=== PATIENT | female | born 1985 | race Caucasian/White ===

== ENCOUNTER → 2018-02-24 | Outpatient (CLI) | payer OTHER | LOC: FIMAGING 08:36 | PROVIDERS: ATTEND Advanced Practice Midwife | DX: Z34.82 Encounter for supervision of other normal pregnancy, second trimester (principal); Z3A.19 19 weeks gestation of pregnancy ==

== ENCOUNTER → 2018-03-26 | Outpatient (CLI) | payer OTHER | LOC: FIMAGING 09:17 | PROVIDERS: ATTEND Advanced Practice Midwife | DX: O09.892 Supervision of other high risk pregnancies, second trimester (principal); Z86.79 Personal history of other diseases of the circulatory system; Z3A.22 22 weeks gestation of pregnancy ==

== ENCOUNTER → 2018-05-14 | Outpatient (CLI) | payer OTHER | LOC: FIMAGING 11:44 | PROVIDERS: ATTEND Advanced Practice Midwife | DX: O09.293 Supervision of pregnancy with other poor reproductive or obstetric history, third trimester (principal); Z3A.30 30 weeks gestation of pregnancy ==

== ENCOUNTER 2018-07-25 05:34 | Inpatient (IN) | payer OTHER ==
[2018-07-25] MEDS ORDERED: MISOPROSTOL 200 MCG TAB PR PRN (05:44)
[2018-07-25] MEDS ORDERED: OXYTOCIN/RINGERS LACTATE 1,000 ML IV PRN (05:44)
[2018-07-25] MEDS ORDERED: IBUPROFEN 600 MG TAB PO PRN (05:44)
[2018-07-25] MEDS ORDERED: LIDOCAINE 1% 300 MG/30 ML SDV SC PRN (05:44)
[2018-07-25] MEDS ORDERED: EPSOM SALT 454 GM TP PRN (05:44)
[2018-07-25] MEDS ORDERED: OLIVE OIL 118 ML BTL MISC PRN (05:44)
[2018-07-25] MEDS ORDERED: LR 1,000 ML IV PRN (05:44)
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
[2018-07-25] MEDS ORDERED: PENICILLIN G POTASSIUM 5,000,000 UNIT in D5W 150 ML IV ONE (06:00)
[2018-07-25] MEDS ORDERED: TERBUTALINE SULFATE 1 MG/ML VIAL ONE (07:08)
[2018-07-25] MEDS ORDERED: OLIVE OIL 118 ML BTL MISC ONE (07:08)
[2018-07-25] MEDS ORDERED: AMMONIA AROMATIC 1 EACH AMP IH ONE (07:08)
[2018-07-25] MEDS ORDERED: LIDOCAINE 1% 300 MG/30 ML SDV ONE (07:08)
[2018-07-25] MEDS ORDERED: MISOPROSTOL 200 MCG TAB ONE (07:09)
[2018-07-25] MEDS ORDERED: OXYTOCIN 10 UNIT/ML VIAL ONE (07:09)
[2018-07-25 07:51] LABS: PLATELET COUNT 144 10^3/uL (150-400)
[2018-07-25] MEDS ORDERED: ACETAMINOPHEN 325 MG TAB PO PRN (09:33)
[2018-07-25] MEDS ORDERED: HYDROCORTISONE 0.5% CREAM TP PRN (09:33)
[2018-07-25] MEDS ORDERED: SIMETHICONE 80 MG TAB CHEW PO PRN (09:33)
--- NOTE | 2018-07-25 09:38 | OBDEL ---
Info Type: Vaginal Presentation at Delivery: Vertex L&D Analgesia/Anesthesia Type: None GBS+: Yes Intrapartum Medications: Discontinued Medications Generic Name Dose Route Start Last Admin Trade Name Bart PRN Reason Stop Dose Admin Penicillin G Potassium 5,000, 160 mls @ 160 mls/hr 07/25/18 06:00 07/25/18 06 :09 000 unit/ Dextrose IV 07/25/18 06:59 160 mls ONCE ONE Administration Protocol Indications for Delivery: Spontaneous Labor, SROM Vaginal Delivery - Delivery Provider Delivery Physician/CNM: Magi Siddiqui - Labor and Delivery Onset of Contractions Date: 07/25/18 Onset of Contractions Time: 02:00 Onset of Contractions Type: Spontaneous Rupture of Membranes Date: 07/25/18 Rupture of Membranes Time: 05:30 Rupture of Membranes Type: Spontaneous Amniotic Fluid Color: Clear Dilation Complete Date: 07/25/18 Dilation Complete Time: 07:30 Placenta Delivery Date: 07/25/18 Vaginal Sponge Count Correct: Yes Vaginal Needle Count Correct: Yes Vaginal Sweep Performed: Yes EBL: 250 Delivery Events: Nuchal Cord Data HERMILO: 07/18/18 Gestational Age: 41 week(s) and 0 day(s) Gatica Delivery Date: 07/25/18 Delivery Time: 08:37 Sex of Infant: Female Score (1 Min): 8 Score (5 Min): 8 ICD10 Worksheet Patient Problems: Problems Problem Status Onset Positive GBS test Acute (spontaneous vaginal delivery) Acute - ICD10 Problem Qualifiers (1) (spontaneous vaginal delivery) (2) Positive GBS test
[2018-07-25] MEDS: PENICILLIN G POTASSIUM 2,500,000 UNIT in D5W 150 ML IV SCH (14:03)
[2018-07-25] MEDS: IBUPROFEN 600 MG TAB PO PRN (17:47)
[2018-07-25] MEDS: DOCUSATE SODIUM 100 MG CAP PO PRN (17:48)
[2018-07-26] MEDS: IBUPROFEN 600 MG TAB PO PRN (00:22)
[2018-07-26] MEDS: DOCUSATE SODIUM 100 MG CAP PO PRN (09:49)
--- NOTE | 2018-07-26 12:25 | OBPP ---
Progress Note Assessment/Plan: Assessment: 1. breast feeding mom 2. 1 pp day, Plan: 1. support 2. d/c home tomorrow 07/26/18 12:22 Subjective/ Course: 07/26/18 12:24 BF well, voiding without difficulty, plan d/c home tomorrow Objective: 07/25/18 06:05 07/25/18 06:05 Patient ABO/Rh O POSITIVE 07/25/18 09:55 Uric Acid 5.8 mg/dL (2.5-6.8) 07/25/18 06:05 Total Bilirubin 0.3 mg/dL (0.1-1.4) 07/25/18 06:05 Conjugated Bilirubin 0.3 mg/dL (0.0-0.5) 07/25/18 06:05 Unconjugated Bilirubin 0.0 mg/dL (0.0-1.1) 07/25/18 06:05 AST 25 IU/L (14-46) 07/25/18 06:05 ALT 34 IU/L (9-52) 07/25/18 06:05 Lactate Dehydrogenase 588 IU/L (313-618) 07/25/18 06:05 Temp Pulse Resp BP Pulse Ox 36.3 C 95 16 117/80 95 07/26/18 08:45 07/26/18 08:45 07/26/18 08:45 07/26/18 08:45 07/26/18 08:45 Uterine Position/Fundal Height: At Umbilicus Uterine Tone: Firm
[2018-07-27 09:21] VITALS: BP 123/79
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
== END 2018-07-27 12:05 | disposition home or self-care (01) | DRG 807 ==
LOC: OBSVTOIN 05:34 → FLD 05:34 → FOB 16:02
PROVIDERS: ADMIT Advanced Practice Midwife; ATTEND Advanced Practice Midwife
PROC: 10E0XZZ Delivery of Products of Conception, External Approach (ICD-10-PCS; principal; 2018-07-25)
DX: O48.0 Post-term pregnancy (principal); O69.9XX0 Labor and delivery complicated by cord complication, unspecified, not applicable or unspecified; O99.344 Other mental disorders complicating childbirth; Z22.330 Carrier of Group B streptococcus; F41.9 Anxiety disorder, unspecified; Z3A.41 41 weeks gestation of pregnancy; Z37.0 Single live birth
CPT/HCPCS: J2540; J2590; J3105